=== PATIENT | female | born 1980 | race Native Hawaiian/Other Pacific Islander ===

== ENCOUNTER 2021-05-20 11:43 | Emergency (ER) | payer BC ==
[~2021-05-20] VITALS: Ht 157.5 cm; Wt 72.6 kg
[2021-05-20 11:50] VITALS: BP 117/78; TEMP 99.9
[2021-05-20 12:23] LABS: PLATELET COUNT 322 K/uL (152-353)
[2021-05-20 12:29] LABS: POTASSIUM 3.8 mmol/L (3.6-5.2)
== END 2021-05-20 13:16 | disposition home or self-care (01) ==
LOC: ED 11:43
PROVIDERS: Emergency Medicine
DX: K52.89 Other specified noninfective gastroenteritis and colitis (principal); Z20.822 Contact with and (suspected) exposure to COVID-19
CPT/HCPCS: 80053; 81000; 83690; 85027; 87635; 96372; 99283; J2405; U0003